=== PATIENT | female | born 1975 | race African-American/Black ===

== ENCOUNTER 2020-09-17 18:24 | Emergency (ER) | payer OTHER ==
[2020-09-17 18:29] VITALS: BP 149/103; PULSE 73; TEMP 98.8; BMI 30.9
[2020-09-17 20:50] LABS: HEMATOCRIT 33.1 % (32.4-45.2); HEMOGLOBIN 10.4 GM/dL (10.7-15.3); MCH 25.4 pg (25.7-33.7); MCHC 31.6 g/dl (32.0-36.0); MEAN CELL VOLUME 80.4 fl (80-96); MEAN PLT VOLUME 8.7 fl (7.5-11.1); PLATELET COUNT 230 K/MM3 (134-434); RBC 4.11 M/mm3 (3.60-5.2); RDW 14.9 % (11.6-15.6); WHITE BLOOD COUNT 3.3 K/mm3 (4.0-10.0)
[2020-09-17 21:08] LABS: CHLORIDE 103 mmol/L (98-107); POTASSIUM 3.9 mmol/L (3.5-5.1); SODIUM 138 mmol/L (136-145)
[2020-09-17 21:11] LABS: CALCIUM 8.6 mg/dL (8.5-10.1)
[2020-09-17 21:12] LABS: ALBUMIN 3.5 g/dl (3.4-5.0); ANION GAP 7 MMOL/L (8-16); BLOOD UREA NITROGEN 16.1 mg/dL (7-18); CO2 28 mmol/L (21-32); GLUCOSE,RANDOM 87 mg/dL (74-106)
[2020-09-17 21:14] LABS: INR 1.01 (0.83-1.09); PROTHROMBIN TIME (PATIENT) 12.4 SEC (9.7-13.0)
[2020-09-17 21:15] LABS: ACTIVATED PTT 27.1 SECONDS (25.2-36.5); CREATININE 0.7 mg/dL (0.55-1.3); SGOT/AST 17 U/L (15-37); SGPT/ALT 22 U/L (13-61)
[2020-09-17 21:16] LABS: TOT PROT 6.7 g/dl (6.4-8.2)
[2020-09-17 21:17] LABS: ALK PHOS 57 U/L (45-117); BILIRUBIN,TOTAL 0.4 mg/dL (0.2-1)
[2020-09-17 21:56] LABS: MAGNESIUM 1.8 mg/dL (1.8-2.4)
== END 2020-09-17 23:32 | disposition home or self-care (01) ==
LOC: JER 18:24
DX: R00.2 Palpitations (principal)
CPT/HCPCS: 36415; 71275-TC; 80053; 83735; 84443; 84484; 84703; 85027; 85379; 85610; 85730; 93005; 93010; 99285-25; Q9967

== ENCOUNTER 2020-12-03 04:17 | Inpatient (IN) | payer OTHER ==
[2020-12-03 06:34] VITALS: BMI 30.5
[2020-12-03] MEDS ORDERED: LIDOCAINE HCL 2% 100 MG/5 ML DISP.SYRIN ONE (07:27)
[2020-12-03] MEDS ORDERED: PROPOFOL 20 ML ONE (07:27)
[2020-12-03] MEDS ORDERED: MIDAZOLAM HCL 2 MG/2 ML SINGLE DOSE VIAL ONE ×2 (07:28)
[2020-12-03] MEDS ORDERED: SUCCINYLCHOLINE CHLORIDE 200 MG/10 ML SYRINGE ONE (07:28)
[2020-12-03] MEDS ORDERED: ROCURONIUM BROMIDE 50 MG/5 ML SYRINGE ONE (07:28)
[2020-12-03] MEDS ORDERED: BUPIVACAINE HCL/PF 0.25% (2.5MG/ML) 10 ML VIAL ONE ×2 (07:34→07:54)
[2020-12-03] MEDS ORDERED: HYDROmorphone HCl 2 MG/ML VIAL ONE (08:50)
[2020-12-03] MEDS ORDERED: ceFAZolin 2 GRAM PREMIX BAG IVPB ONE (08:50)
[2020-12-03] MEDS ORDERED: ACETAMINOPHEN INJECTION 100 ML IVPB ONE (09:15)
[2020-12-03] MEDS ORDERED: GLYCOPYRROLATE 0.2 MG/1 ML VIAL ONE (09:46)
[2020-12-03] MEDS ORDERED: NEOSTIGMINE METHYLSULFATE 0.5 MG/1 ML - 10 ML MDV ONE (09:47)
[2020-12-03] MEDS ORDERED: BENZOIN/ALOE VERA/STORAX/TOLU 58 ML BOTTLE ONE (09:48)
[2020-12-03] MEDS ORDERED: ACETAMINOPHEN 325 MG TABLET (FP) PO PRN (09:58)
[2020-12-03] MEDS ORDERED: ONDANSETRON 4 MG/2 ML VIAL IM PRN (09:58)
[2020-12-03] MEDS ORDERED: SIMETHICONE 80 MG TAB.CHEW (FP) PO PRN (10:00)
[2020-12-03] MEDS ORDERED: ONDANSETRON 4 MG/2 ML VIAL IVPUSH PRN (10:16)
[2020-12-03] MEDS ORDERED: KETOROLAC TROMETHAMINE 30 MG/1 ML VIAL IVPUSH PRN (10:16)
[2020-12-03] MEDS ORDERED: KETOROLAC TROMETHAMINE 30 MG/1 ML VIAL IVPUSH ONE (12:00)
[2020-12-03] MEDS ORDERED: KETOROLAC TROMETHAMINE 30 MG/1 ML VIAL ONE (12:17)
[2020-12-03] MEDS: LACTATED RINGERS SOLUTION 1,000 ML IV SCH ×2 (14:07→17:43)
[2020-12-03] MEDS: ENOXAPARIN NA (PORCINE) 30 MG/0.3 ML DISP.SYRIN SQ SCH ×3 (20:19→21:39)
[2020-12-03] MEDS ORDERED: ZOLPIDEM TARTRATE 5 MG TABLET PO PRN (22:00)
[2020-12-04] MEDS: LACTATED RINGERS SOLUTION 1,000 ML IV SCH ×4 (01:21→17:19)
[2020-12-04] MEDS ORDERED: oxyCODONE HCL 5 MG TABLET PO PRN (08:06)
[2020-12-04 08:33] LABS: BASO % 0.3 % (0-2.0); EOS % 0.2 % (0-4.5); HEMATOCRIT 28.3 % (32.4-45.2); HEMOGLOBIN 9.3 GM/dL (10.7-15.3); LYMPH % 25.6 % (8-40); MCH 25.8 pg (25.7-33.7); MCHC 32.9 g/dl (32.0-36.0); MEAN CELL VOLUME 78.6 fl (80-96); MONO % 7.4 % (3.8-10.2); NEUT % 66.5 % (42.8-82.8); PLATELET COUNT 243 K/MM3 (134-434); RDW 14.8 % (11.6-15.6)
[2020-12-04] MEDS: ENOXAPARIN NA (PORCINE) 30 MG/0.3 ML DISP.SYRIN SQ SCH (10:01)
[2020-12-04] MEDS: IBUPROFEN 600 MG TABLET (FP) PO PRN (15:20)
[2020-12-05] MEDS: IBUPROFEN 600 MG TABLET (FP) PO PRN ×2 (01:06→09:04)
[2020-12-05] MEDS: LACTATED RINGERS SOLUTION 1,000 ML IV SCH (03:00)
[2020-12-05 15:46] VITALS: BP 119/73; PULSE 100; TEMP 98.7
== END 2020-12-05 17:04 | disposition home or self-care (01) | DRG 951 ==
LOC: J2C 04:17 → J6S 13:14
PROVIDERS: ADMIT Obstetrics & Gynecology; ATTEND Obstetrics & Gynecology
PROC: 0UT70ZZ Resection of Bilateral Fallopian Tubes, Open Approach (ICD-10-PCS; 2020-12-03)
PROC: 0UT90ZZ Resection of Uterus, Open Approach (ICD-10-PCS; principal; 2020-12-03 08:00)
DX: D21.9 Benign neoplasm of connective and other soft tissue, unspecified (principal); N93.8 Other specified abnormal uterine and vaginal bleeding; D64.9 Anemia, unspecified; I10 Essential (primary) hypertension; Z87.891 Personal history of nicotine dependence
CPT/HCPCS: 36415; 81025; 85025; 86850; 86870; 86900; 86901; 86902; 88302-TC; 88307-TC; 94010; 94760; J0131

== ENCOUNTER 2022-01-26 19:42 | Emergency (ER) | payer OTHER ==
[2022-01-26 19:53] VITALS: BMI 31.1
[2022-01-26 23:36] LABS: BASO % 1.1 % (0-2.0); EOS % 0.7 % (0-4.5); HEMATOCRIT 40.3 % (32.4-45.2); HEMOGLOBIN 12.8 GM/dL (10.7-15.3); LYMPH % 47.2 % (8-40); MCH 24.9 pg (25.7-33.7); MCHC 31.7 g/dl (32.0-36.0); MEAN CELL VOLUME 78.3 fl (80-96); MONO % 7.2 % (3.8-10.2); NEUT % 43.8 % (42.8-82.8); PLATELET COUNT 311 10^3/uL (134-434); RBC 5.15 M/mm3 (3.60-5.2); RDW 14.7 % (11.6-15.6); WHITE BLOOD COUNT 5.1 K/mm3 (4.0-10.0)
[2022-01-26 23:37] LABS: URINE APPEARANCE CLOUDY; URINE BILIRUBIN NEGATIVE (NEGATIVE); URINE COLOR YELLOW; URINE GLUCOSE (UA) NEGATIVE (NEGATIVE); URINE KETONE 1+ (NEGATIVE); URINE LEUK ESTERASE NEGATIVE (NEGATIVE); URINE NITRITE NEGATIVE (NEGATIVE); URINE PROTEIN NEGATIVE (NEGATIVE)
[2022-01-26 23:40] LABS: HCG,QUALITATIVE URINE Negative
[2022-01-26 23:43] LABS: INR 1.12 (0.83-1.09); PROTHROMBIN TIME (PATIENT) 12.9 SEC (9.7-13.0)
[2022-01-26 23:45] LABS: ACTIVATED PTT 31.9 SECONDS (25.2-36.5)
[2022-01-26 23:56] LABS: CALCIUM 9.1 mg/dL (8.5-10.1)
[2022-01-26 23:57] LABS: ALBUMIN 3.8 g/dl (3.4-5.0); BLOOD UREA NITROGEN 12.9 mg/dL (7-18); MAGNESIUM 1.9 mg/dL (1.8-2.4)
[2022-01-27] LABS: CREATININE 0.7 mg/dL (0.55-1.3)
[2022-01-27 00:01] LABS: TOT PROT 7.4 g/dl (6.4-8.2)
[2022-01-27 00:02] LABS: BILIRUBIN,TOTAL 0.7 mg/dL (0.2-1)
[2022-01-27 00:44] VITALS: BP 126/80; PULSE 68; TEMP 98.6
== END 2022-01-27 02:33 | disposition home or self-care (01) ==
LOC: JER 19:42
DX: R00.2 Palpitations (principal)
CPT/HCPCS: 36415; 71275-TC; 80053; 81003; 83735; 84443; 84484; 84703; 85025; 85610; 85730; 87086; 93005; 93010; 99285-25

== ENCOUNTER → 2022-05-12 | Day surgery (SDC) | payer OTHER | END | disposition home or self-care (01) | LOC: JMAMMO-SUR 11:49 | PROVIDERS: ATTEND Registered Nurse | PROC: 0H9U3ZX Drainage of Left Breast, Percutaneous Approach, Diagnostic (ICD-10-PCS; principal; 2022-05-12) | DX: N63.20 Unspecified lump in the left breast, unspecified quadrant (principal); Z53.8 Procedure and treatment not carried out for other reasons | CPT/HCPCS: 76642-TC-LT ==

== ENCOUNTER 2024-01-17 21:29 | Emergency (ER) | payer SELFPAY ==
[2024-01-17 21:38] VITALS: BMI 30.2
[2024-01-17] MEDS ORDERED: ACETAMINOPHEN INJECTION 100 ML IVPB ONE (23:18)
[2024-01-17] MEDS ORDERED: FAMOTIDINE 20 MG/50 ML IVPB 20 MG/50 ML MG IVPB ONE (23:19)
[2024-01-17] MEDS ORDERED: MAG HYDROX/AL HYDROX/SIMETH 30 ML UNIT-DOSE CUP ONE (23:19)
[2024-01-17] MEDS ORDERED: ONDANSETRON 4 MG/2 ML VIAL ONE (23:19)
[2024-01-17] MEDS: ACETAMINOPHEN 1000 MG/100 ML BAG IVPB ONE (23:37)
[2024-01-17] MEDS: MAG HYDROX/AL HYDROX/SIMETH 30 ML UNIT-DOSE CUP PO ONE (23:37)
[2024-01-17] MEDS: ONDANSETRON 4 MG/2 ML VIAL IVPUSH ONE (23:37)
[2024-01-17 23:52] LABS: BASO % 0.3 % (0-2.0); EOS % 0.2 % (0-4.5); HEMATOCRIT 42.8 % (32.4-45.2); HEMOGLOBIN 13.8 GM/dL (10.7-15.3); LYMPH % 33.3 % (8-40); MCH 24.8 pg (25.7-33.7); MCHC 32.3 g/dl (32.0-36.0); MEAN CELL VOLUME 76.8 fl (80-96); MEAN PLT VOLUME 7.9 fl (7.5-11.1); MONO % 7.2 % (3.8-10.2); PLATELET COUNT 202 10^3/uL (134-434); RBC 5.57 M/mm3 (3.60-5.2); RDW 14.9 % (11.6-15.6); WHITE BLOOD COUNT 2.7 K/mm3 (4.0-10.0)
[2024-01-17 23:58] LABS: INR 1.02 (0.83-1.09); PROTHROMBIN TIME (PATIENT) 11.8 SEC (9.7-13.0)
[2024-01-17] MEDS: FAMOTIDINE 20 MG/50 ML IVPB 20 MG/50 ML MG IVPB ONE (23:58)
[2024-01-18] LABS: ACTIVATED PTT 29.2 SECONDS (25.2-36.5)
[2024-01-18 00:23] LABS: POTASSIUM 4.3 mmol/L (3.5-5.1)
[2024-01-18 00:24] LABS: CALCIUM 8.8 mg/dL (8.5-10.1)
[2024-01-18 00:25] LABS: ALBUMIN 3.4 g/dl (3.4-5.0)
[2024-01-18 00:28] LABS: CREATININE 0.7 mg/dL (0.55-1.3)
[2024-01-18 00:29] LABS: BLOOD UREA NITROGEN 11.2 mg/dL (7-18); TOT PROT 6.8 g/dl (6.4-8.2)
[2024-01-18 00:30] LABS: BILIRUBIN,TOTAL 0.3 mg/dL (0.2-1)
[2024-01-18] MEDS: SODIUM CHLORIDE 0.9% 500 ML INFUS.BAG IV ONE (02:00)
[2024-01-18 07:07] LABS: PH,URINE 5.5 (5.0-8.0); URINE APPEARANCE CLEAR; URINE BILIRUBIN NEGATIVE (NEGATIVE); URINE COLOR YELLOW; URINE GLUCOSE (UA) NEGATIVE (NEGATIVE); URINE KETONE 1+ (NEGATIVE); URINE LEUK ESTERASE NEGATIVE (NEGATIVE); URINE NITRITE NEGATIVE (NEGATIVE); URINE PROTEIN NEGATIVE (NEGATIVE)
[2024-01-18 07:12] VITALS: BP 120/82; PULSE 67; RESP 18; TEMP 98.3
[2024-01-18] MEDS ORDERED: APIXABAN 5 MG TABLET PO SCH (10:00)
== END 2024-01-18 08:00 | disposition home or self-care (01) ==
LOC: JER 21:29
PROC: 3E033GC Introduction of Other Therapeutic Substance into Peripheral Vein, Percutaneous Approach (ICD-10-PCS; principal; 2024-01-17)
PROC: 3E033NZ Introduction of Analgesics, Hypnotics, Sedatives into Peripheral Vein, Percutaneous Approach (ICD-10-PCS; 2024-01-17)
PROC: 3E033GC Introduction of Other Therapeutic Substance into Peripheral Vein, Percutaneous Approach (ICD-10-PCS; 2024-01-17)
DX: R11.2 Nausea with vomiting, unspecified (principal); R19.7 Diarrhea, unspecified; R06.02 Shortness of breath; R10.9 Unspecified abdominal pain; Z20.822 Contact with and (suspected) exposure to COVID-19
CPT/HCPCS: 0241U-QW; 36415; 71046-TC-FY; 71275-TC; 80053; 81003; 84484; 84703; 85025; 85610; 85730; 87086; 93005; 93010; 99285-25; J0131